=== PATIENT | female | born 1970 | race Two or more races ===

== ENCOUNTER 2021-08-31 01:27 | Emergency (ER) | payer BC ==
[~2021-08-31] VITALS: Ht 165.1 cm; Wt 77.1 kg
--- NOTE | 2021-08-31 01:45 | NUR ---
Dr. Fine at bedside for MSE.
[2021-08-31] MEDS ORDERED: OXYC-128 PO (01:58)
--- NOTE | 2021-08-31 02:04 | NUR ---
Patient discharged to home in stable condition. Written and verbal after care instructions given. Patient verbalizes understanding of instructions. Stressed follow up or return to ER for worsening s/s. Patient out of ER with steady gait, no acute signs of distress, VSS, all belongings taken.
[2021-08-31 02:05] VITALS: BP 136/88
== END 2021-08-31 02:05 | disposition home or self-care (01) ==
LOC: ER 01:36
DX: U07.1 COVID-19 (principal)
CPT/HCPCS: A4663